=== PATIENT | female | born 1980 | race Caucasian/White ===

== ENCOUNTER → 2019-07-14 09:00 | Outpatient (CLI) | payer OTHER, SELFPAY ==
--- NOTE | 2019-07-14 09:09 | XR_ITS ---
PROCEDURE: XR CHEST 2V CLINICAL HISTORY: PNEUMONIA, WHEEZING COMPARISON: No exams were available for comparison FINDINGS: The cardiomediastinal silhouette and pulmonary vascularity are within normal limits. Patchy increased markings present in the right lower lung zone and could be due to summation artifact or ground-glass infiltrate. Follow-up considered. No acute bony abnormalities. IMPRESSION: Possible right lower lobe infiltrate Dictated by: Maxx Zepeda MD 07/14/2019 11:09 Electronically signed by Maxx Zepeda MD in [facility] 07/14/2019 11:09
== END ==
PROVIDERS: PCP Family Medicine; Visit Provider Family Medicine
DX: J18.9 Pneumonia, unspecified organism (principal); R06.02 Shortness of breath
CPT/HCPCS: 71046

== ENCOUNTER → 2019-07-16 09:22 | Outpatient (CLI) | payer OTHER, SELFPAY ==
--- NOTE | 2019-07-16 09:28 | CT_ITS ---
PROCEDURE: CT CHEST WO/W CON CLINCAL INDICATION: PERSISTANT PNEUMONIA Pneumonia, persistent pneumonia with continued cough and shortness of air COMPARISON: XR CHEST 2V from 07/14/2019 TECHNIQUE: IV Contrast: 75ml Optiray 350 Axial images obtained with sagittal and coronal reformats. All CT scans at the facility use one or more dose reduction, viz: automated exposure control, ma/kV adjustment per patient size (including targeted exams where dose is matched to indication, i.e. head), or iterative reconstruction technique. FINDINGS: HEART AND MEDIASTINAL STRUCTURES: Unremarkable. LUNGS AND PLEURAL SPACES: No lobar consolidation or collapse. There is calcified granuloma in the left upper lobe. There are minimal fibrotic changes in the left lung base and there is some minimal subpleural nodularity in the right lower lobe posteriorly which is nonspecific. BONY STRUCTURES: Minimal degenerative changes thoracic spine UPPER ABDOMEN: Prior cholecystectomy ADDITIONAL FINDINGS: No other significant abnormalities. IMPRESSION: No acute finding Dictated by: Maxx Zepeda MD 07/17/2019 09:40 Electronically signed by Maxx Zepeda MD in [facility] 07/17/2019 09:40
== END ==
PROVIDERS: PCP Family Medicine; Visit Provider Family Medicine
DX: J18.9 Pneumonia, unspecified organism (principal)
CPT/HCPCS: 71270; Q9967